=== PATIENT | male | born 1950 | race Caucasian/White ===

== ENCOUNTER 2017-11-23 07:39 | Day surgery (SDC) | payer OTHER ==
[~2017-11-23] VITALS: Ht 172.7 cm; Wt 71.7 kg
[~2017-11-23 07:39] MED LIST: ALBU90OI INH; Simvastatin10 MG PO
== END 2017-11-23 10:54 | disposition home or self-care (01) ==
LOC: ORSCSDS 07:39
PROVIDERS: Internal Medicine Gastroenterology
PROC: 0DB58ZX Excision of Esophagus, Via Natural or Artificial Opening Endoscopic, Diagnostic (ICD-10-PCS; principal; 2017-11-23 09:45)
DX: R12 Heartburn (principal); K20.9 Esophagitis, unspecified; Z80.0 Family history of malignant neoplasm of digestive organs; K44.9 Diaphragmatic hernia without obstruction or gangrene; K21.9 Gastro-esophageal reflux disease without esophagitis; E78.00 Pure hypercholesterolemia, unspecified; J45.909 Unspecified asthma, uncomplicated; Z87.891 Personal history of nicotine dependence; Z79.899 Other long term (current) drug therapy
CPT/HCPCS: 88305; J7120

== ENCOUNTER → 2025-06-23 | Outpatient (CLI) | payer OTHER ==
[~2025-06-23] MED LIST changes: +ALPR.5; +ASPI81CH PO; +ATOR80 PO; +CIDAFLEX TABLE1 EAC1 PO; +DICLOFENAC SOD100 GM TP; +PANT20 PO; +PRESERVISION A1 EAC1 PO; -Simvastatin10 MG PO; +ZOCOR20 MG PO; +[UNRECOGNIZED DRUG - OTHER] PO
== END | disposition home or self-care (01) ==
LOC: LAB 07:57 → LAB SHORT 07:57
DX: M71.371 Other bursal cyst, right ankle and foot (principal)
CPT/HCPCS: 88304

== ENCOUNTER 2025-09-16 08:56 | Day surgery (SDC) | payer OTHER ==
[~2025-09-16] VITALS: Ht 170.2 cm; Wt 76.1 kg
[~2025-09-16 08:56] MED LIST changes: +Balanced Salt Epinephrine Irrigation Solution 500 mL IR SCH; +Moxifloxacin HCL 0.5 MG/0.1 ML 0.4MLSYR RIGHTEYE SCH; +PHENYLEPHRINE\\TROPICAMIDE\\TETRACAINE OPHTHALMIC DILATING SOLN RIGHTEYE PRN; +Povidone-Iodine 450 DROP/30 ML Solution ONE; +Povidone-Iodine 450 DROP/30 ML Solution RIGHTEYE SCH; +Tetracaine HCl/Pf 0.5% Opth Soln 4 ml ONE
--- NOTE | 2025-09-16 09:50 | NUR ---
09/16/25 0950 Linda, Shana VALIUM 10MG PO ADMINISTERED AT 0930 PER ORDERS. PT REPORTS ANXIETY LEVEL WAS 2/10 PRIOR. TETRACAINE IN AT 0931 PLEDGETT IN AT 0932 CALL LIGHT IN PT'S HAND. SPO2 AND HR MONITORING IN PLACE. SPO2 CURRENTLY 96% ON RA. HR 52BPM.
--- NOTE | 2025-09-16 10:10 | NUR ---
09/16/25 1010 Melissa Eduardo VITALS AT 1010 BP: 132/77 P: 55 O2: 99% WITH 10 LITERS OF BLOW BY OXYGEN
[2025-09-16 10:29] VITALS: BP 136/83
[2025-09-18] MEDS ORDERED: ASPI81CH PO (08:01)
== END 2025-09-16 10:42 | disposition home or self-care (01) ==
LOC: ORSCSDS 08:56
PROVIDERS: Student in an Organized Health Care Education/Training Program
PROC: 08RJ3JZ Replacement of Right Lens with Synthetic Substitute, Percutaneous Approach (ICD-10-PCS; principal; 2025-09-16 10:30)
DX: H25.813 Combined forms of age-related cataract, bilateral (principal); H52.201 Unspecified astigmatism, right eye; H35.3132 Nonexudative age-related macular degeneration, bilateral, intermediate dry stage; J45.909 Unspecified asthma, uncomplicated; E78.5 Hyperlipidemia, unspecified; Z79.82 Long term (current) use of aspirin; Z79.899 Other long term (current) drug therapy; Z87.891 Personal history of nicotine dependence
CPT/HCPCS: A9270; V2632